=== PATIENT | female | born 1980 | race African-American/Black ===

== ENCOUNTER 2020-06-15 21:56 | Emergency (ER) | payer OTHER ==
[~2020-06-15] VITALS: Ht 167.6 cm; Wt 102.0 kg
[2020-06-15] MEDS ORDERED: AZITHROMYCIN 500 MG TABLET PO ONE (23:15)
[2020-06-15] MEDS ORDERED: CEFTRIAXONE SODIUM 250 MG/VIAL IM ONE (23:15)
[2020-06-15] MEDS ORDERED: LORAZEPAM 1MG TABLET PO ONE (23:15)
[2020-06-15] MEDS ORDERED: AMLODIPINE 10MG TABLET PO ONE (23:15)
[2020-06-16 00:59] VITALS: BP 142/87
[2020-06-18 04:10] LABS: NEISSERIA GONORRHOEAE NAA Negative (Negative)
== END 2020-06-16 01:08 | disposition home or self-care (01) ==
LOC: ER 21:56
DX: F41.9 Anxiety disorder, unspecified (principal); I10 Essential (primary) hypertension; J45.909 Unspecified asthma, uncomplicated; E11.9 Type 2 diabetes mellitus without complications
CPT/HCPCS: 81025; 87491; 87591; 93005; 96372; 99284; J0696